=== PATIENT | female | born 1950 | race Caucasian/White ===

== ENCOUNTER 2017-12-27 11:33 | Inpatient (IN) ==
--- NOTE | 2017-12-27 11:59 | Anesthesia Evaluation PreOp ---
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: Denies Any Significant HX Other Medical History: Bleeding (ANEMIA), Other (12/25/2017: GROUND LEVEL FALL WITH LEFT PROXIMAL HUMERUS FX, OBESITY BMI 46) Anesthesia History: No Prior Anesthetic Complications, Past Anesthesia Alcohol Use: none Drug use: none Medications and Allergies Budesonide/Formoterol 160/4.5 [Symbicort 160/4.5] 2 puff IH BID 12/27/17 [History] Gabapentin [Neurontin] 100 mg PO TID 12/27/17 [History] Lisinopril-HCTZ 20-12.5 [Prinzide 20-12.5] 1 tab PO BID 12/27/17 [History] Tiotropium [Spiriva] 1 puff IH DAILY 12/27/17 [History] Allergy/AdvReac Type Severity Reaction Status Date / Time cephalexin [From Keflex] Allergy Hives Verified 12/08/17 13:50 - Meds/Allergy Pre-op Review Medications Reviewed: Yes Allergies Reviewed: Yes Beta Blockers on Current Med List: No Anesthesia Results - Labs Laboratory Last Values WBC 6.5 K/mcL (4.3-11.1) 12/26/17 16:02 RBC 3.94 M/mcL (3.82-4.97) 12/26/17 16:02 Hgb 10.4 g/dL (11.5-15.4) L 12/26/17 16:02 Hct 34.1 % (35.3-44.9) L 12/26/17 16:02 MCV 86.5 fL (83.0-100.0) 12/26/17 16:02 MCH 26.4 pg (28.0-33.3) L 12/26/17 16:02 MCHC 30.5 g/dL (31.6-35.5) L 12/26/17 16:02 RDW 14.3 % (11.5-14.5) 12/26/17 16:02 Plt Count 220 K/mcL (140-400) 12/26/17 16:02 MPV 12.0 fL (9.4-12.4) 12/26/17 16:02 Immature Gran % 0.3 % (0-4) 12/26/17 16:02 Seg Neutrophils % 68.1 % 12/26/17 16:02 Lymphocytes % 21.6 % 12/26/17 16:02 Monocytes % 5.9 % 12/26/17 16:02 Eosinophils % 3.6 % 12/26/17 16:02 Basophils % 0.5 % 12/26/17 16:02 Neutrophils # 4.4 K/mcL (1.6-8.9) 12/26/17 16:02 Lymphocytes # 1.4 K/mcL (0.6-4.6) 12/26/17 16:02 Monocytes # 0.4 K/mcL (0.0-1.3) 12/26/17 16:02 Eosinophils # 0.2 K/mcL (0.0-0.6) 12/26/17 16:02 Basophils # 0.0 K/mcL (0.0-0.2) 12/26/17 16:02 PT 12.1 Seconds (9.4-12.1) 12/26/17 16:02 INR 1.1 12/26/17 16:02 APTT 34.1 Seconds (26.0-36.0) 12/26/17 16:02 Sodium 141 mEq/L (136-145) 12/26/17 16:02 Potassium 4.3 mEq/L (3.5-5.1) 12/26/17 16:02 Chloride 109 mEq/L (98-107) H 12/26/17 16:02 Carbon Dioxide 23 mEq/L (23-29) 12/26/17 16:02 BUN 33 mg/dL (8-23) H 12/26/17 16:02 Creatinine 0.75 mg/dL (0.60-1.20) 12/26/17 16:02 Est GFR ( Amer) > 60 (> 60) 12/26/17 16:02 Est GFR (Non-Af Amer) > 60 (> 60) 12/26/17 16:02 BUN/Creatinine Ratio 44 (6-26) H 12/26/17 16:02 Anesthesia Exam O2 Sat Height 1.63 m Weight 121.109 kg - Cardiac Rhythm: Regular - Pulmonary Breath Sounds: bilateral Clear Respiratory Effort: Symmetrical Anesthesia Assess/Plan ASA Score: 3 Anesthetic Plan: General Regional Nerve Block Plan: Interscalene Monitoring Plan: Standard Monitors Recovery Plan: PACU Anes Supervising Prov Stmt: Signature [employer] LIST NOT UPDATED THIS VISIT PATIENT'S CHART AND CURRENT MEDICATIONS REVIEWED CURRENT MEDICATIONS: Iron 28 MG Tablet, Si tablet Orally Once a day Cetirizine HCl 10 MG Tablet, Si tablet Orally Once a day Aspirin 81 MG Tablet Chewable, Si tablet Orally Once a day Lisinopril-Hydrochlorothiazide 20-12.5 MG Tablet, Sig: TAKE 1 TABLET TWICE A DAY Gabapentin 100 MG Tablet, Sig: as directed Orally Three times a day Start Date: 09/28/2017 Spiriva HandiHaler 18 MCG Capsule, Si Capsule Inhalation once a day Celebrex 200 MG Capsule, Si capsule Orally BID Vitamin D-3 1000 UNIT Capsule, Si capsule Orally Once a day PATIENT INFORMED AND CONSENTED. RISKS, BENEFITS, AND ALTERNATIVES DISCUSSED. PATIENT WISHES TO PROCEED. <Lanny Kat - Last Filed: 12/27/17 12:34> Date of Encounter: 12/27/17 Time of Encounter: 12:28 - Past History Pulmonary History: Former smoker (quit in 2009), GIBSON Dx (BiPAP (settings 08/02? 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
[2017-12-27] MEDS ORDERED: Albuterol 2.5 MG/3 ML NEBULIZER IH ONE (12:08)
[2017-12-27] MEDS ORDERED: Ethanol\\Acetic Acid\\Na Ace\\Ben 1,000 ML IRRIG.SOLN IR ONE (12:11)
[2017-12-27] MEDS ORDERED: Ringers Solution, Lactated 1,000 ML IVC SCH ×2 (12:15→19:36)
[2017-12-27] MEDS ORDERED: Albuterol 2.5 MG/3 ML NEBULIZER ONE (12:45)
--- NOTE | 2017-12-27 13:05 | History & Physical Report ---
Date of Encounter: 12/27/17 Time of Encounter: 13:04 24 Hour HP Update - Instructions Instructions: If the History and Physical is less than 30 days old and was completed prior to A.M. admission and or procedure and has NOT been updated on calendar day of procedure please complete this update prior to performing procedure. - Update Patient reports changes in Medical Condition: No Changes in examination, assessment, or condition: No Changes in Medication: No Preop tests/diagnostics Reviewed: Yes Surgery Remains Indicated: Yes Consent for Planned Operative Procedure(s) Verified: Yes - Pre-Operative Checklist Preoperative Checklist Indicated: No Prophylactic Antibiotic Ordered: Yes Is VTE Prophylaxis Indicated?: NO
[2017-12-27] MEDS ORDERED: Clindamycin 900 MG/50 ML 900 MG/50 ML IV.SOLN IVPB STA (13:19)
[2017-12-27] MEDS ORDERED: Bupivacaine/Clonidine Syringe 1 EACH SYRINGE ONE (13:23)
[2017-12-27] MEDS ORDERED: ROPIVACAINE HCL/PF 0.5% 30 ML VIAL ONE (13:23)
--- NOTE | 2017-12-27 14:11 | Anesthesia Procedures ---
Date of Encounter: 12/27/17 Time of Encounter: 13:40 Procedures: Anesthesia - Nerve Block Procedure Date: 12/27/17 Time: 14:09 Allergies/Adv Reactions: Allergy/AdvReac Type Severity Reaction Status Date / Time cephalexin [From Keflex] Allergy Hives Verified 12/27/17 13:30 Nickel Allergy See Verified 12/27/17 13:31 Comments Surgical Procedure: left total shoulder Checklist: Correct Patient Identifier, Correct procedure, History checked Correct side: Left Blood Thinner: No Monitor Applied: EKG, BP, Pulse Oximetry Supplemental Oxygen via Nasal Cannula (L/min): 2 Sedation: Versed (mg): 2 Sedation: Fentanyl (mcg): 50 Indication: Post Op Analgesia Pre-op Neuro Deficits: No Block Type: Supraclavicular, Other (ICB, SCP) Catheter placed: No Sterile Technique: Yes Ultrasound used: Yes Anatomy identified: Yes Visual spread of Local: Yes Nerve Stimulator Range: >0.4 - 0.6 mA Blood on Needle Aspiration: No Smooth Injection of Local: Yes Pain with Injection of Local: Yes Prep: Chlorhexadine Needle: 22 x 50 mm Stimuplex Local: 0.25% Bupivicaine w/Clonidine 20 mcg/cc, Ropivacaine Volume (cc): 50 Number of Attempts: 1 Complications: None/effective block Vitals: Vital Signs Pulse Rate 101 12/27/17 13:32 Blood Pressure 119/54 12/27/17 13:32 O2 Sat by Pulse Oximetry 93 12/27/17 13:32 Pulse Rate 101 12/27/17 13:32 Blood Pressure 119/54 12/27/17 13:32 O2 Sat by Pulse Oximetry 93 12/27/17 13:32 Comments: see nurses notes for vitals
[2017-12-27] MEDS ORDERED: *HR* Succinylcholine 200 MG/10 ML VIAL IVP ONE (14:45)
[2017-12-27] MEDS ORDERED: Lidocaine -MPF 2% 2 ML VIAL ONE (14:45)
[2017-12-27] MEDS ORDERED: EPHEDrine 50 MG/ML VIAL ONE (14:45)
[2017-12-27] MEDS ORDERED: Dexamethasone 4 MG/ML VIAL ONE (14:45)
[2017-12-27] MEDS ORDERED: *HR* Midazolam HCl 2 MG/2 ML VIAL ONE (14:45)
[2017-12-27] MEDS ORDERED: *HR* Propofol 200 MG/20 ML VIAL IVP ONE (14:45)
[2017-12-27] MEDS ORDERED: *HR* FentaNYL (PF) 100 MCG/2 ML VIAL ONE (14:45)
[2017-12-27] MEDS ORDERED: Ondansetron 4 MG/2 ML VIAL ONE (14:45)
[2017-12-27] MEDS ORDERED: Ondansetron 4 MG/2 ML VIAL IVP ONE (14:58)
[2017-12-27] MEDS ORDERED: *HR* OxyCODONE/APAP 5/325 TABLET PO PRN ×2 (14:58→19:36)
[2017-12-27] MEDS ORDERED: *HR* Morphine 2 MG/ML SYRINGE IVP PRN (14:58)
--- NOTE | 2017-12-27 15:31 | Orthopedic Operative Note ---
Date of procedure: 12/27/17 Pre-op diagnosis: Displaced left proximal humeral fracture Post-op diagnosis: same Procedure: Procedure: Reverse total shoulder replacment, left Estimated blood loss: 100 cc Hardware: Metal and polyethylene replacement Arthrex glenoid baseplate: 24, +2, 25 mm screw , 2 4.5 screws. 2 5.5 locking screw, glenosphere: 42+4 , humeral stem: 9 , poly insert: 3 constrained 2 Arthrex cerclage fiber tapes Procedural Notes: Displaced proximal humeral fracture comminuted, grade 4 arthritic changes humeral head and glenoid socket. Operative procedure: The patient was brought to the operating room and placed on the operating room table. After general anesthesia was administered the operative shoulder was examined. Findings were noted. The patient was placed in the modified beachchair position. All pressure points were padded appropriately. And the head was stabilized in the neutral position. The operative extremity was prepped and draped in the sterile surgical fashion. The patient received IV antibiotics prior to skin incision. A standard deltopectoral approach was made to the operative shoulder. Incision was made to the skin and subcutaneous tissue,hemo stasis was obtained with Bovie cautery. Using careful blunt dissection the cephalic vein was identified and mobilized medially. The deltopectoral interval was developed and the clavipectoral fascia was incised. The lesser tuberosity was identified and tagged with 2 #2 fiber loops and 2 #2 FiberWire suture. The greater tuberosity was identified and tagged with 2 #2 FiberWire suture and 2 cerclage fiber tapes. The humeral head was removed. Patient noted to have grade 4 arthritic changes humeral head and glenoid socket. Anterior and posterior Bankart retractors were placed to expose the glenoid. The glenoid guide was seated and the centering hole was made. It was reamed with the appropriate reamer. The 24+2, 25 mm screw baseplate was seated and secured with (2) 4.5 screws and 2 5.5 locking screw. The baseplate was irrigated and dried and the 42+4 was seated and secured with the Fontana taper and central screw-in. The Fontana taper was tested and found to be secure the humerus was redislocated and prepared with the diaphyseal reamers, followed by a broaching process up to the appropriate size 9 in 20 degrees of retro-version. Trial reduction found the shoulder to be relocatable. Trial components were removed. The real humeral component was impaced in place in 20 degrees of retroversion. Trial reduction found the shoulder to be relocatable and stable with the 3 constrained Faby. Trial component was removed and the real implant was seated and secured the shoulder was reduced. The shoulder had excellent motion and excellent stability and no evidence of dislocation. The greater tuberosity was reduced and repaired to the implant with 2 cerclage fiber tapes. the lesser tuberosity was reduced and repaired to this construct with 2 #5 fiberwire sutures. The deep tissue was irrigated with pulse irrigation. The deltopectoral interval was closed with a running #1 PDS suture, subcutaneous tissue was irrigated and closed with 0 PDS suture, the skin was closed with Dermabond. The patient was placed in a sterile dressing, abduction brace and extubated. The patient was then transferred to the recovery room in stable condition. Anesthesia: GETBao Surgeon: Tom Dupree Was there an assistant men's soccer coach present: No Estimated blood loss (cc): 100 Condition: stable Disposition: PACU
--- NOTE | 2017-12-27 15:47 | Discharge Summary ---
<Tom Dupree - Last Filed: 12/27/17 15:40> Orders not resulted at time of discharge: Pending orders 12/27/17 12:26 US anesthesia pain block [US] Stat 12/27/17 15:21 Surgical Pathology [PTH] Routine 12/27/17 15:37 Hemoglobin and Hematocrit [HEME] Routine 12/27/17 15:38 Left Shoulder Complete [XR shoulder complete LT] [XR] Routine Date of Encounter: 12/27/17 - Discharge Diagnosis (1) COPD (chronic obstructive pulmonary disease) Priority: Secondary Status: Chronic Qualifiers: COPD type: unspecified COPD Qualified Code(s): J44.9 - Chronic obstructive pulmonary disease, unspecified (2) Obstructive sleep apnea Priority: Secondary Status: Chronic (3) Morbid obesity with BMI of 45.0-49.9, adult Priority: Secondary Status: Chronic (4) Displaced fracture of proximal end of left humerus Priority: Primary Status: Acute (5) Status post reverse total replacement of left shoulder Priority: Primary Status: Acute - Hospital Course Hospital course: Ms. Prieto is a 67 year old female - Time Spent with Patient Total time spent providing and/or coordinating discharge services: - Discharge Medications Home Medications: Acetaminophen [Tylenol] 500 mg PO DAILY PRN 12/27/17 [History] Albuterol Sulfate [Proair Hfa] 1 puff IH Q6H PRN 12/27/17 [History] Aspirin [Adult Aspirin Regimen] 81 mg PO DAILY 12/27/17 [History] Budesonide/Formoterol 160/4.5 [Symbicort 160/4.5] 2 puff IH BID 12/27/17 [History] Celecoxib [Celebrex] 200 mg PO BID 12/27/17 [History] Cetirizine HCl [Zyrtec] 10 mg PO DAILY 12/27/17 [History] Cholecalciferol (D-3) [Vitamin D] 1,000 unit PO DAILY 12/27/17 [History] Gabapentin [Neurontin] 100 mg PO TID 12/27/17 [History] Lisinopril-HCTZ 20-12.5 [Prinzide 20-12.5] 1 tab PO BID 12/27/17 [History] OxyCODONE Immed Rel [Roxicodone 5 MG] 5 mg PO Q6HR PRN 5 Days #20 tablet 12/27/17 [Rx] Tiotropium [Spiriva] 1 puff IH DAILY 12/27/17 [History] Allergies/Adverse Reactions: Allergy/AdvReac Type Severity Reaction Status Date / Time cephalexin [From Keflex] Allergy Hives Verified 12/27/17 13:30 Nickel Allergy See Verified 12/27/17 13:31 Comments Primary care physician: Ezekiel Lopez Jr, MD - Patient Status Disposition: Home Health Service Condition: Good - Discharge Instructions Follow Up With: Tom Dupree MD [Partnered Physician] - 01/23/18 3:55 pm Yvette Fernandez PAC [Physician Software Administrator] - 01/03/18 1:30 pm (Second followup 01/11/18 @ 9:45am) Additional Instructions: Discharge Instructions: Total Shoulder Please call [facility] ([phone]), your Primary Care Physician, or report to the Emergency Room if you have any of the following symptoms: Nausea, vomiting, fever greater that 101.5, swelling, chest pain, shortness of breath, increased pain/redness/drainage/odor for your incision site, numbness/tingling, or any other concerning symptoms. ACTIVITY: NO SHOULDER MOTION - Elbow motion OK. Always keep your arm in the sling with wedge in place. Do not raise your arm away from your body. Do not use your arm to help with getting in or out of bed. No weight bearing permitted. Only perform those exercises given to you by your therapist. Incentive Spirometer 10 times an hour. MEDICATIONS: Upon discharge resume your home medications. Take all the medications as prescribed. Take a stool softener if taking narcotic pain medications. Stool softeners are only effective if you drink enough fluids. Drink 6-8 glass of water or fluids a day, unless this is not allowed for another health problem. Despite using stool softeners, if you haven't had a bowel movement in 3 days, please switch to a gentle laxative. Gentle laxatives are sold over the counter. You should have a bowel movement within 24 hours, if not call the office. You will be discharged from the hospital with a prescription for pain medication. You are encouraged to decrease the use of narcotic pain medication as tolerated. Should you require a refill, please call the office. [facility] prescribes narcotic pain medication for only 4-6 weeks after surgery. If you require pain medication beyond this time period, you may be referred to your Primary Care Physician or to the Pain Clinic for further evaluation. Plan ahead for refills on pain medication as many narcotics either need to be picked up at the office or mailed. It is best to call 48-72 hours in advance of needing a prescription refill so you don't run out of medication. To help control the post-operative pain, you may take NSAIDs (Aleve,Advil, M otrin, Ibuprofen, Naprosyn) or Tylenol as prescribed on the bottle in addition to the pain medication. WOUND CARE: Leave the dressing on for 7-10 days. You may change the dressing if it becomes saturated greater than 50%. Do not get the dressing wet at anytime. Wash your hands with antibacterial soap, rinse and dry prior to any wound care. If you have jenise the visiting nurse or rehab facility can remove the stapes 10-14 days after surgery and place steri-strips across the wound. Leave the steri-strips in place until they fall off on their own. You may let water from the shower run on top of the steri-strips. If you do not have a visiting nurse or rehab facility, you will need to return to the office at 10-14 days for the jenise to be removed. If you have itching or redness around the dressing call the office. FOLLOW-UP: Please follow up with your surgeon in the orthopedic clinic, as romulo tadeo <Astrid Staton - Last Filed: 12/28/17 12:41> Orders not resulted at time of discharge: Pending orders 12/27/17 12:26 US anesthesia pain block [US] Stat 12/27/17 15:21 Surgical Pathology [PTH] Routine 12/29/17 04:00 Basic Metabolic Panel AM 0400 Hemoglobin and Hematocrit [HEME] AM 0400 Date of Encounter: 12/28/17 Time of Encounter: 12:00 - Discharge Diagnosis (1) Status post reverse total replacement of left shoulder Priority: Primary Status: Acute (2) Acute blood loss anemia Priority: Secondary Status: Acute (3) Displaced fracture of proximal end of left humerus Priority: Primary Status: Acute (4) COPD (chronic obstructive pulmonary disease) Priority: Secondary Status: Chronic Qualifiers: COPD type: unspecified COPD Qualified Code(s): J44.9 - Chronic obstructive pulmonary disease, unspecified (5) Morbid obesity with BMI of 45.0-49.9, adult Priority: Secondary Status: Chronic (6) Obstructive sleep apnea Priority: Secondary Status: Chronic (7) Hypertension Priority: Secondary Status: Acute Qualifiers: Hypertension type: essential hypertension Qualified Code(s): I10 - Essential (primary) hypertension - Hospital Course Hospital course: Ms. Prieto is a 67 year old female status post Left TSR reverse with a history ofCOPD, HTN, GIBSON, obesity, anemia . Patient had uneventful postoperative course other than development of a mild excoriation under left breast for which she was given nystatin powder. She participated with therapy. Stable for discharge. Patient seen at bedside, without complaints. A&O x 3 Afebrile, vital signs stable. Dressing c/d/i with no drainage or surrounding erythema. NV intact distally Labs reviewed. H/H 9.4/30.5 - stable, asymptomatic Pain control: adequate NO shoulder motion. Stay in brace at all times. Ok for gentle elbow and wrist motion. NWB. All questions and concerns addressed. Educated on use of incentive spirometer. Encouraged ambulation and proper hydration. Patient educated on post-operative restrictions and post-operative care. Assessment and plan: Continue with postoperative care Discharge plan: Home , discharge today. - Time Spent with Patient Total time spent providing and/or coordinating discharge services: Date of admission: 12/27/17 16:24 Primary care physician: Ezekiel Lopez Jr, MD Consults: 12/27/17 19:36 Consult to Physical Therapy [CONS] Routine Comment: post shoulder surgery Reason for Consult: post shoulder surgery Does patient have active BEDREST order?: No Is patient medically & hemodynamically stable?: Yes RT Post Op Consult [CONS] Routine 12/28/17 10:23 Consult to Channeler [CONS] Routine Reason for SW Consult: home health on d/c Discharging clinician: Tom Dupree Anticipated date of discharge: 12/28/17 Labs on day of discharge: Labs from last 24 hours 12/28/17 12/28/17 12/27/17 04:25 04:25 15:52 Hgb 9.4 L 9.6 L Hct 30.5 L 31.2 L Sodium 140 Potassium 4.4 Chloride 109 H Carbon Dioxide 24 BUN 19 Creatinine 0.48 L Est GFR ( Amer) > 60 Est GFR (Non-Af Amer) > 60 BUN/Creatinine Ratio 40 H Glucose 130 H Calculated Osmolality 294 Calcium 9.1 - Impressions ITS Impressions Shoulder X-Ray 12/27/17 15:38 IMPRESSION: Baseline postop left shoulder prosthesis placement. 2 cm long cortical fracture fragment along the proximal lateral humeral metaphysis. D/ / John Stanton MD / John Stanton MD Interpreting Provider: John Stanton MD - Patient Status Functional capacity at discharge: independent ambulation Overall status at discharge: patient is back to baseline - Diet and Activity Activity: other (ambulate as usual but no shoulder motion) Diet: advance to your usual diet
--- NOTE | 2017-12-27 16:09 | Anesthesia Evaluation Post Op ---
Date of Encounter: 12/27/17 Time of Encounter: 16:05 - Vital Signs Vital Signs: Vital Signs/O2 Sat/Glucose, Most Current Temp Pulse Resp BP Pulse Ox 12/27/17 15:54 22 112/63 96 12/27/17 15:44 118 24 115/60 94 12/27/17 15:34 97.3 F L 102 22 97/53 97 12/27/17 13:32 101 119/54 93 - Lungs Lungs: Clear Ascult./Percussion - Airway Airway: Non-obstructed - Cardiovascular Regular Rate - Mental Status Mental Status: Alert & Oriented, Answers Appropriately - Pain Pain Scale: 0 - Nausea Vomiting Nausea Vomiting: Not Present - Hydration Hydration: Tolerates oral liquids, Ice chips, Has not voided - Discharge PostOp Status: Transfer Patient to floor
[2017-12-27 16:13] LABS: Hematocrit 31.2 % (35.3-44.9); Hemoglobin 9.6 g/dL (11.5-15.4)
[2017-12-27] MEDS ORDERED: *HR* Enoxaparin 30 MG/0.3 ML SYRINGE SQ SCH (18:00)
[2017-12-27] MEDS ORDERED: Clindamycin 900 MG/50 ML 900 MG/50 ML IV.SOLN IVPB SCH (19:36)
[2017-12-27] MEDS ORDERED: Temazepam 15 MG CAPSULE PO PRN (19:36)
[2017-12-27] MEDS ORDERED: traMADol 50 MG TABLET PO PRN (19:36)
[2017-12-27] MEDS ORDERED: *HR* OxyCODONE Immed Rel 5 MG TABLET PO PRN (19:36)
[2017-12-27] MEDS ORDERED: MOM Conc 10 ML UD.LIQ PO PRN (19:36)
[2017-12-27] MEDS ORDERED: Sennosides 8.6 MG TABLET PO PRN (19:36)
[2017-12-27] MEDS ORDERED: Ondansetron 4 MG/2 ML VIAL IVP PRN (19:36)
[2017-12-27] MEDS ORDERED: Naloxone 0.4 MG/ML INJ IVP PRN (19:36)
[2017-12-27] MEDS: Gabapentin 100 MG CAPSULE PO SCH ×2 (21:37→21:38)
[2017-12-27] MEDS: Lisinopril-HCTZ 20-12.5mg TABLET PO SCH (21:37)
[2017-12-27] MEDS: Clindamycin 900 MG/50 ML 900 MG/50 ML IV.SOLN IVPB SCH (21:38)
[2017-12-27] MEDS: Budesonide/Formoterol 160/4.5 1 PUFF INH IH SCH (23:40)
[2017-12-28 04:45] LABS: Hematocrit 30.5 % (35.3-44.9); Hemoglobin 9.4 g/dL (11.5-15.4)
[2017-12-28 05:05] LABS: BUN/Creatinine Ratio 40 (6-26); Blood Urea Nitrogen 19 mg/dL (8-23); Calcium 9.1 mg/dL (8.6-10.3); Carbon Dioxide 24 mEq/L (23-29); Chloride 109 mEq/L (98-107); Glucose 130 mg/dL (70-105); Osmolality,Calculated 294 (280-300); Potassium 4.4 mEq/L (3.5-5.1); Sodium 140 mEq/L (136-145); eGFR For Non-African Americans > 60 (> 60)
[2017-12-28] MEDS: Clindamycin 900 MG/50 ML 900 MG/50 ML IV.SOLN IVPB SCH (05:39)
[2017-12-28] MEDS ORDERED: *HR* Enoxaparin 30 MG/0.3 ML SYRINGE SQ SCH (06:00)
--- NOTE | 2017-12-28 06:22 | Orthopedics Progress Note ---
Date of Encounter: 12/28/17 Time of Encounter: 06:21 - Assessment and Plan (1) COPD (chronic obstructive pulmonary disease) Current Visit: Yes Status: Chronic Qualifiers: COPD type: unspecified COPD Qualified Code(s): J44.9 - Chronic obstructive pulmonary disease, unspecified (2) Obstructive sleep apnea Current Visit: Yes Status: Chronic (3) Morbid obesity with BMI of 45.0-49.9, adult Current Visit: Yes Status: Chronic (4) Displaced fracture of proximal end of left humerus Current Visit: Yes Status: Acute (5) Status post reverse total replacement of left shoulder Current Visit: Yes Status: Acute (6) Acute blood loss anemia Current Visit: Yes Status: Acute Subjective Interval history: Patient was seen this morning doing well without complaints. Afebrile vital signs stable. Operative extremity: Neurovascularly intact Dressing clean dry and intact Calves nontender Assessment and plan: Continue with postoperative care Hemoglobin 9.4 discharged today Objective Vital signs: Vital Signs Temp Pulse Resp BP Pulse Ox 12/28/17 03:46 97.9 F 76 17 134/75 99 12/27/17 23:40 97.6 F 85 18 108/62 97 12/27/17 20:15 98.5 F 97 16 111/68 94 12/27/17 19:09 97.9 F 109 16 149/81 96 12/27/17 18:15 98.3 F 98 26 129/75 97 12/27/17 17:31 97.7 F 110 18 127/75 97 12/27/17 16:14 105 20 119/67 96 12/27/17 16:04 97.2 F L 107 22 118/70 96 12/27/17 15:54 108 22 112/63 96 12/27/17 15:44 118 24 115/60 94 12/27/17 15:34 97.3 F L 102 22 97/53 97 12/27/17 13:32 101 119/54 93 Intake and Output 12/27/17 12/27/17 12/28/17 15:59 23:59 07:59 Intake Total 500 / 500 Output Total 100 / 100 500 / 500 Balance -100 / -100 0 / 0 Intake: IV Fluids 50 / 50 Cleocin Premix 900 MG/50 ML 900 50 / 50 mg In 50 ml @ 50 mls/hr IVPB Q8H [facility] Rx#:[id number] Oral 450 / 450 Output: Urine 500 / 500 Estimated Blood Loss 100 / 100 Other: # Voids 1 Weight 121.109 kg 78.2 kg Patient Weight 12/28/17 23:59 Weight 78.2 kg - Labs CBC & BMP: 12/28/17 04:25 12/28/17 04:25 Labs: Abnormal lab results Hgb 9.4 g/dL (11.5-15.4) L 12/28/17 04:25 Hct 30.5 % (35.3-44.9) L 12/28/17 04:25 Chloride 109 mEq/L (98-107) H 12/28/17 04:25 Creatinine 0.48 mg/dL (0.60-1.20) L 12/28/17 04:25 BUN/Creatinine Ratio 40 (6-26) H 12/28/17 04:25 Glucose 130 mg/dL (70-105) H 12/28/17 04:25 - VTE Documentation of Mechanical Device: Venous foot pump, device Consult Discharge Plan - Plan Referrals: Ezekiel Lopez Jr, MD [Primary Care Provider] -
[2017-12-28] MEDS: Budesonide/Formoterol 160/4.5 1 PUFF INH IH SCH (07:36)
[2017-12-28] MEDS: Gabapentin 100 MG CAPSULE PO SCH (08:15)
[2017-12-28] MEDS: Lisinopril-HCTZ 20-12.5mg TABLET PO SCH (08:15)
[2017-12-28] MEDS ORDERED: Loratadine 10 MG TABLET PO SCH (09:00)
[2017-12-28] MEDS ORDERED: Aspirin Enteric Coated 81 MG Tablet PO SCH (09:00)
[2017-12-28] MEDS ORDERED: Tiotropium 18 MCG inhalation IH SCH (09:00)
[2017-12-28] MEDS ORDERED: Cholecalciferol (D-3) 1,000 UNIT TABLET PO SCH (09:00)
[2017-12-28 10:53] VITALS: BP 112/64
--- NOTE | 2017-12-28 11:02 | Physician Discharge Referral ---
Home Health/Hosp Referral Info Transfer to: Home Health Attending Provider: Joon - Diagnosis (1) Status post reverse total replacement of left shoulder Priority: Primary Status: Acute (2) Acute blood loss anemia Priority: Secondary Status: Acute (3) Displaced fracture of proximal end of left humerus Priority: Secondary Status: Acute (4) COPD (chronic obstructive pulmonary disease) Priority: Secondary Status: Chronic (5) Morbid obesity with BMI of 45.0-49.9, adult Priority: Secondary Status: Chronic (6) Obstructive sleep apnea Priority: Secondary Status: Chronic - Respiratory Orders Smoking Cessation: Smoking cessation has been advised. For more information, call the [place] Tobacco Quit Line at 0-910-SRZZ-NOW. - Diet/Nutrition Diet/Nutrition Orders: Regular - Activity Activity Orders: Up ad felice, Ambulate, Chair Activity: List: Opsite dressing, leave intact until first post-operative visit. Zipline/Gilles in place, plan to remove at post-operative day #14-16. If dressing becomes >50% saturated, contact office, remove dressing and place appropriate dressing in its place. Do not allow for dressing to get wet. Shoulder Precautions x 6 weeks. Apply cold therapy wrap 3-6x/day for 20 minutes at a time. Encourage ambulation throughout the day. Use Incentive spirometer 10x/hour. NWB to affected upper extremity x 6 weeks. Wear brace at all times but may remove for hygiene purposes. NO SHOULDER MOTION. May begin gentle elbow and wrist motion. - Services Needed Following services are medically necessary services: Nursing, Home Health Aide, Physical Therapy (NO shoulder motion, therapy temporarily on hold but Home environment evaluation has been recommended by inpatient therapist), Occupational Therapy - Transfer Medications Home Medications: Acetaminophen [Tylenol] 500 mg PO DAILY PRN 12/27/17 [History] Albuterol Sulfate [Proair Hfa] 1 puff IH Q6H PRN 12/27/17 [History] Aspirin [Adult Aspirin Regimen] 81 mg PO DAILY 12/27/17 [History] Budesonide/Formoterol 160/4.5 [Symbicort 160/4.5] 2 puff IH BID 12/27/17 [History] Celecoxib [Celebrex] 200 mg PO BID 12/27/17 [History] Cetirizine HCl [Zyrtec] 10 mg PO DAILY 12/27/17 [History] Cholecalciferol (D-3) [Vitamin D] 1,000 unit PO DAILY 12/27/17 [History] Gabapentin [Neurontin] 100 mg PO TID 12/27/17 [History] Lisinopril-HCTZ 20-12.5 [Prinzide 20-12.5] 1 tab PO BID 12/27/17 [History] OxyCODONE Immed Rel [Roxicodone 5 MG] 5 mg PO Q6HR PRN 5 Days #20 tablet 12/27/17 [Rx] Tiotropium [Spiriva] 1 puff IH DAILY 12/27/17 [History] Allergies/Adverse Reactions: Allergy/AdvReac Type Severity Reaction Status Date / Time cephalexin [From Keflex] Allergy Hives Verified 12/27/17 13:30 Nickel Allergy See Verified 12/27/17 13:31 Comments Certification: Further, I certify that my clinical findings support that this patient is homebound (i.e. absences from home require considerable and taxing effort and are for medical reasons or adventism services or infrequently or short duration when for other reasons) because: Homebound Reason: Post-surgery restriction and or conditions limit ability to leave home Attestation: My signature below is to certify that this patient is under my care and that I, or nurse practitioner, or a physician hospital aides and assistants teacher working with me, has a [id number] encounter with this patient.
[2017-12-28] MEDS ORDERED: Nystatin POWDER 30 GM BOTTLE TP SCH (12:00)
== END 2017-12-28 13:37 | disposition home health service (06) | DRG 483 ==
LOC: SAMDAY 11:33 → 3NENU 16:24
PROVIDERS: ADMIT Orthopaedic Surgery; ATTEND Orthopaedic Surgery

== ENCOUNTER 2019-04-06 11:19 | Inpatient (IN) ==
[2019-04-06] MEDS ORDERED: 0.9 % Sodium Chloride 250 ML IVC ONE (11:27)
[2019-04-06] MEDS ORDERED: methylPREDNISolone 125 MG/2 ML VIAL IVP ONE (11:27)
[2019-04-06] MEDS ORDERED: Ipratropium/Albuterol Neb 3 ML IH ONE (11:27)
[2019-04-06 11:43] LABS: Basophils % 0.3 %; Eosinophils % 0.3 %; Hematocrit 29.6 % (35.3-44.9); Hemoglobin 8.6 g/dL (11.5-15.4); Immature Granulocytes % 0.5 % (0-4); Lymphocytes # 0.7 K/mcL (0.6-4.6); Lymphocytes % 11.4 %; Mean Corpuscular HGB Conc 29.1 g/dL (31.6-35.5); Mean Corpuscular Hemoglobin 21.3 pg (28.0-33.3); Mean Corpuscular Volume 73.4 fL (83.0-100.0); Mean Platelet Volume 11.4 fL (9.4-12.4); Monocytes # 0.5 K/mcL (0.0-1.3); Monocytes % 7.3 %; Neutrophils # 5.1 K/mcL (1.6-8.9); Platelet Count 228 K/mcL (140-400); Red Blood Count 4.03 M/mcL (3.82-4.97); Red Cell Distribution Width 17.6 % (11.5-14.5); Segmented Neutrophils % 80.2 %; White Blood Count 6.3 K/mcL (4.3-11.1)
[2019-04-06 11:47] LABS: VBG HCO3 29 mEq/L (21-27); VBG PCO2 59 mmHg (41-51); VBG PO2 50 mmHg (25-50)
[2019-04-06 12:05] LABS: Alanine Aminotransferase 15 Units/L (7-52); Albumin/Globulin Ratio 1.4 (1.1-2.2); Alkaline Phosphatase 93 Units/L (34-104); Aspartate Amino Transferase 16 Units/L (13-39); BUN/Creatinine Ratio 36 (6-26); Bilirubin,Total 0.7 mg/dL (0.3-1.0); Blood Urea Nitrogen 31 mg/dL (8-23); Calcium 9.7 mg/dL (8.6-10.3); Carbon Dioxide 28 mEq/L (23-29); Chloride 105 mEq/L (98-107); Globulin 2.9 g/dL (2.4-3.5); Glucose 110 mg/dL (70-105); Osmolality,Calculated 303 (280-300); Potassium 3.9 mEq/L (3.5-5.1); Sodium 143 mEq/L (136-145); Total Protein 6.9 g/dL (6.4-8.9); eGFR For African Americans > 60 (> 60); eGFR For Non-African Americans > 60 (> 60)
[2019-04-06 12:12] LABS: Troponin I 0.04 ng/mL (< 0.04)
[2019-04-06] MEDS ORDERED: Furosemide 40 MG/4 ML VIAL IVP ONE (12:17)
[2019-04-06] MEDS ORDERED: Aspirin 325 MG TABLET PO ONE (12:18)
[2019-04-06] MEDS ORDERED: Acetaminophen 325 MG TABLET PO PRN (13:13)
[2019-04-06] MEDS ORDERED: Ondansetron 4 MG/2 ML VIAL IVP PRN (13:13)
[2019-04-06] MEDS ORDERED: Perflutren Lipid Microsphere 1.3 ML in 0.9 % Sodium Chloride 8.7 ML IVP ONE (15:15)
[2019-04-06] MEDS: Ipratropium/Albuterol Neb 3 ML IH SCH ×3 (15:40→19:39)
[2019-04-06] MEDS: Azithromycin 250 MG TABLET PO SCH (16:17)
[2019-04-06] MEDS: Furosemide 40 MG/4 ML VIAL IVP SCH (18:33)
[2019-04-06] MEDS: Budesonide/Formoterol 160/4.5 1 PUFF INH IH SCH (19:40)
[2019-04-06] MEDS: *HR* LORazepam 0.5 MG TABLET PO PRN (22:02)
[2019-04-07] MEDS: Ipratropium/Albuterol Neb 3 ML IH SCH ×5 (00:23→21:24)
[2019-04-07 05:48] LABS: Red Cell Distribution Width 17.5 % (11.5-14.5)
[2019-04-07 05:49] LABS: Hematocrit 26.9 % (35.3-44.9); Hemoglobin 7.4 g/dL (11.5-15.4); Mean Corpuscular HGB Conc 27.5 g/dL (31.6-35.5); Mean Corpuscular Volume 76.4 fL (83.0-100.0); Mean Platelet Volume 11.7 fL (9.4-12.4); Platelet Count 193 K/mcL (140-400); Red Blood Count 3.52 M/mcL (3.82-4.97); White Blood Count 4.2 K/mcL (4.3-11.1)
[2019-04-07] MEDS: *HR* Enoxaparin 40 MG/0.4 ML SYRINGE SQ SCH (06:03)
[2019-04-07 06:05] LABS: BUN/Creatinine Ratio 39 (6-26); Blood Urea Nitrogen 35 mg/dL (8-23); Calcium 9.5 mg/dL (8.6-10.3); Carbon Dioxide 29 mEq/L (23-29); Chloride 103 mEq/L (98-107); Glucose 159 mg/dL (70-105); Magnesium 1.7 mg/dL (1.6-2.6); Osmolality,Calculated 311 (280-300); Potassium 3.8 mEq/L (3.5-5.1); Sodium 145 mEq/L (136-145); eGFR For African Americans > 60 (> 60); eGFR For Non-African Americans > 60 (> 60)
[2019-04-07 06:07] LABS: Troponin I 0.05 ng/mL (< 0.04)
[2019-04-07] MEDS: Budesonide/Formoterol 160/4.5 1 PUFF INH IH SCH ×2 (07:28→21:24)
[2019-04-07] MEDS: Azithromycin 250 MG TABLET PO SCH (08:25)
[2019-04-07] MEDS: Furosemide 40 MG/4 ML VIAL IVP SCH ×2 (08:25→16:38)
[2019-04-07] MEDS: predniSONE 20 MG TABLET PO SCH (08:26)
[2019-04-07] MEDS: Aspirin Enteric Coated 81 MG Tablet PO SCH (08:26)
[2019-04-07] MEDS ORDERED: 0.9 % Sodium Chloride 250 ML ONE (12:17)
[2019-04-07] MEDS ORDERED: Furosemide 20 MG/2 ML VIAL IVP ONE (12:30)
[2019-04-07] MEDS: Nystatin POWDER 30 GM BOTTLE TP SCH ×2 (16:05→21:39)
[2019-04-07 17:15] LABS: Ferritin 10 ng/mL (10-120); Iron < 10 mcg/dL (50-170); Transferrin 358 mg/dL (203-362)
[2019-04-08] MEDS: Ipratropium/Albuterol Neb 3 ML IH SCH ×4 (03:56→22:19)
[2019-04-08 05:03] LABS: Calcium 9.5 mg/dL (8.6-10.3); Chol/HDL Ratio 3.3 (0-4.9); Potassium 3.8 mEq/L (3.5-5.1)
[2019-04-08] MEDS: *HR* Enoxaparin 40 MG/0.4 ML SYRINGE SQ SCH (05:55)
[2019-04-08 06:30] LABS: Mean Corpuscular Volume 74.3 fL (83.0-100.0)
[2019-04-08 06:31] LABS: Hematocrit 31.2 % (35.3-44.9); Hemoglobin 8.9 g/dL (11.5-15.4); Immature Platelets 10.2 % (1.1-6.1); Mean Corpuscular HGB Conc 28.5 g/dL (31.6-35.5); Mean Corpuscular Hemoglobin 21.2 pg (28.0-33.3); Red Blood Count 4.2 M/mcL (3.82-4.97); Red Cell Distribution Width 17.5 % (11.5-14.5); White Blood Count 9.7 K/mcL (4.3-11.1)
[2019-04-08] MEDS: Furosemide 40 MG/4 ML VIAL IVP SCH ×2 (08:31→16:29)
[2019-04-08] MEDS: Azithromycin 250 MG TABLET PO SCH (08:32)
[2019-04-08] MEDS: Aspirin Enteric Coated 81 MG Tablet PO SCH (08:32)
[2019-04-08] MEDS: Spironolactone 25 MG TABLET PO SCH (08:32)
[2019-04-08] MEDS: predniSONE 20 MG TABLET PO SCH (08:32)
[2019-04-08] MEDS: Nystatin POWDER 30 GM BOTTLE TP SCH ×2 (08:39→20:50)
[2019-04-08 08:43] LABS: Estimated Average Glucose 137 mg/dl
[2019-04-08] MEDS: Budesonide/Formoterol 160/4.5 1 PUFF INH IH SCH ×2 (10:39→22:19)
[2019-04-08] MEDS ORDERED: hydrOXYzine pamoate 25 MG CAPSULE PO PRN (13:22)
[2019-04-08 17:15] LABS: ABG Base Excess -2 mEq/L (-2 to 3); ABG HCO3 22 mEq/L (21-27); ABG Oxygen Saturation 95 % (95-98); ABG PCO2 35 mmHg (35-45); ABG PH 7.42 pH Units (7.32-7.45); ABG PO2 72 mmHg (85-104); ABG TCO2 24 mEq/L (20-26)
[2019-04-08] MEDS: *HR* LORazepam 0.5 MG TABLET PO PRN (20:50)
[2019-04-09] MEDS: Ipratropium/Albuterol Neb 3 ML IH SCH ×4 (03:45→21:51)
[2019-04-09 06:41] LABS: Calcium 9.2 mg/dL (8.6-10.3); Potassium 3.9 mEq/L (3.5-5.1)
[2019-04-09] MEDS: Furosemide 40 MG/4 ML VIAL IVP SCH (08:43)
[2019-04-09] MEDS: Spironolactone 25 MG TABLET PO SCH (08:44)
[2019-04-09] MEDS: *HR* Enoxaparin 40 MG/0.4 ML SYRINGE SQ SCH (08:44)
[2019-04-09] MEDS: Nystatin POWDER 30 GM BOTTLE TP SCH ×2 (08:44→22:24)
[2019-04-09] MEDS: Aspirin Enteric Coated 81 MG Tablet PO SCH (08:44)
[2019-04-09] MEDS: Budesonide/Formoterol 160/4.5 1 PUFF INH IH SCH ×2 (10:36→21:51)
[2019-04-09] MEDS ORDERED: Albumin 25% 25gram/100mL 25 GM/100 ML IV.SOLN IVPB ONE (15:01)
[2019-04-09] MEDS ORDERED: Furosemide 40 MG/4 ML VIAL IVP ONE (16:30)
[2019-04-09] MEDS: *HR* LORazepam 0.5 MG TABLET PO PRN (22:24)
[2019-04-10] MEDS: Ipratropium/Albuterol Neb 3 ML IH SCH ×4 (04:03→21:59)
[2019-04-10 05:26] LABS: Magnesium 1.9 mg/dL (1.6-2.6); Potassium 3.8 mEq/L (3.5-5.1)
[2019-04-10] MEDS: *HR* Enoxaparin 40 MG/0.4 ML SYRINGE SQ SCH (06:01)
[2019-04-10] MEDS ORDERED: Albumin 25% 25gram/100mL 25 GM/100 ML IV.SOLN IVPB ONE (08:51)
[2019-04-10] MEDS ORDERED: Furosemide 40 MG/4 ML VIAL IVP SCH (09:00)
[2019-04-10] MEDS: Albumin 25% 25gram/100mL 25 GM/100 ML IV.SOLN IVPB SCH ×2 (09:41→21:00)
[2019-04-10] MEDS: Aspirin Enteric Coated 81 MG Tablet PO SCH (09:41)
[2019-04-10] MEDS: Nystatin POWDER 30 GM BOTTLE TP SCH ×2 (09:41→21:00)
[2019-04-10] MEDS: Budesonide/Formoterol 160/4.5 1 PUFF INH IH SCH ×2 (10:49→21:59)
[2019-04-10] MEDS: Furosemide 40 MG/4 ML VIAL IVP SCH ×2 (11:34→23:21)
[2019-04-11] MEDS: Ipratropium/Albuterol Neb 3 ML IH SCH ×2 (03:26→10:54)
[2019-04-11 04:45] LABS: Hematocrit 27.8 % (35.3-44.9); Hemoglobin 8.4 g/dL (11.5-15.4); Mean Corpuscular HGB Conc 30.2 g/dL (31.6-35.5); Mean Corpuscular Hemoglobin 22.1 pg (28.0-33.3); Mean Corpuscular Volume 73.2 fL (83.0-100.0); Platelet Count 180 K/mcL (140-400); White Blood Count 6.6 K/mcL (4.3-11.1)
[2019-04-11] MEDS: *HR* Enoxaparin 40 MG/0.4 ML SYRINGE SQ SCH (05:04)
[2019-04-11 06:51] LABS: Calcium 9.6 mg/dL (8.6-10.3); Potassium 3.8 mEq/L (3.5-5.1)
[2019-04-11 08:28] VITALS: BP 119/74
[2019-04-11] MEDS: Nystatin POWDER 30 GM BOTTLE TP SCH (09:29)
[2019-04-11] MEDS: Aspirin Enteric Coated 81 MG Tablet PO SCH (09:29)
[2019-04-11] MEDS ORDERED: Furosemide 40 MG TABLET PO SCH (10:00)
[2019-04-11] MEDS: Budesonide/Formoterol 160/4.5 1 PUFF INH IH SCH (10:51)
== END 2019-04-11 13:18 | disposition home or self-care (01) | DRG 292 ==
LOC: 2ANU 11:19 → EMEROOARM 11:19 → SUATTDRO 13:19 → 2ANU 14:19 → SUATTDRO 04-07 11:05
PROVIDERS: ADMIT Internal Medicine; ATTEND Internal Medicine